=== PATIENT | male | born 1960 | race Caucasian/White ===

== ENCOUNTER 2019-09-16 12:02 | Emergency (ER) | payer OTHER, SELFPAY ==
[2019-09-16 12:05] VITALS: BP 183/100; PULSE 122; RESP 20; TEMP 36.9; O2SAT 99
--- NOTE | 2019-09-16 12:11 | DI.RAD.S_ITS ---
PROCEDURE: XR CHEST 1V INDICATIONS: chest pain TECHNIQUE: One view of the chest was acquired. COMPARISON: [facility], , CHEST 2 VIEW, 10/25/2008, 15:40. FINDINGS: Surgical changes and devices: None. Lungs and pleura: An incomplete inspiratory result is noted, causing a crowded appearance to the lung markings. No focal infiltrates are seen. No pneumothorax or significant pleural effusions are seen. Mediastinum: Mediastinal contours appear normal. Heart size is normal. Bones and chest wall: No suspicious bony lesions. Age-appropriate bony degenerative changes are seen. Overlying soft tissues appear unremarkable. IMPRESSION: Portable chest within normal limits for age. Dictated by: Miguel Ibarra M.D. on 09/16/2019 at 11:32 Approved by: Miguel Ibarra M.D. on 09/16/2019 at 11:34
[2019-09-16 12:29] LABS: Add Manual Diff / Slide Review NO; Basophils Absolute Auto 0 /uL (0-100); Basophils Percent Auto 0.4 % (0-2); Eosinophils Absolute Auto 300 /uL (0-450); Eosinophils Percent Auto 4.8 % (2-4); Hematocrit 45.6 % (41-53); Lymphocytes Absolute Auto 2900 /uL (1100-4500); Lymphocytes Percent Auto 40.6 % (25-40); Mean Corpuscular HGB Conc 35.2 % (30-36); Mean Corpuscular Hemoglobin 31.7 PG (26-34); Mean Corpuscular Volume 90.1 fL (80-100); Monocytes Absolute Auto 600 /uL (0-900); Monocytes Percent Auto 8.5 % (3-14); Neutrophils Absolute Auto 3300 /uL (1500-7000); Neutrophils Percent Auto 45.7 % (50-75); Platelet Count 230 X10^3/uL (150-400); Red Blood Cell Count 5.06 X10^6/uL (4.5-5.9); Red Cell Distribution Width 14.3 % (11.6-14.8); White Blood Cell Count 7.2 X10^3/uL (4.5-11.0)
--- NOTE | 2019-09-16 12:29 | ED.CHESTPAIN ---
HPI - Chest Pain <Camille FabianKYE - Last Filed: 09/16/19 19:07> General Chief Complaint: Chest Pain Stated Complaint: chest pressure/tingling limbs/lips numb/lightheadx Time Seen by Provider: 09/16/19 12:17 Source: patient Mode of arrival: Ambulatory Limitations: no limitations History of Present Illness HPI narrative: 59yo male states current smoker (half a pack a day), drinks approximately 3-4 drinks a day, and has a history of anxiety in the past, presents emergency department complaining of intermittent chest pain for the past 3 weeks. He states he has a ?chest discomfort ?he has felt (denies pressure, tightness). States he has noticed it worse in the morning. He also has intermittent sharp stabbing pain that ?radiates threw his lungs. Denies any alleviating factors. He denies any exacerbating factors such as activity or cold air. He states he felt the discomfort before doing yd work, was able to do the yd work he had planned without any difficulty or shortness of breath. Patient states he occasionally feels palpitations, he causes ?AFib ?but has never been diagnosed with this arrhythmia. However,over the past 3 weeks he has felt random episodes of dizziness. He denies any aggravating or alleviating factors to this dizziness. He states he feels occasionally dizzy with numbness and tingling in his hands, legs, and mouth. He reports associated nausea. He states he has had this in the past and was diagnosed with a panic attack. 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 He believes he has been exposed to COVID-19. He denies any fevers, nasal congestion, sore throat, cough, shortness of breath, vomiting, diarrhea, or abdominal pain. Patient denies any chest discomfort at this time, he states he did take a full aspirin today. He denies taking any medications, denies any history of heart issues, hypertension, or high cholesterol. Denies surgeries other than Achilles tendon repair. No history of PEs, no recent long trips. Related Data Home Medications Medication Instructions Recorded Confirmed aspirin 325 mg PO QDAY #0 tab 02/06/13 09/16/19 Previous Rx's Medication Instructions Recorded hydroxyzine HCl 25 mg PO BID PRN #20 tab 09/16/19 Allergies Allergy/AdvReac Type Severity Reaction Status Date / Time No Known Drug Allergies Allergy Verified 09/16/19 12:23 Review of Systems <YKE Bell - Last Filed: 09/16/19 19:07> Review of Systems Narrative: REVIEW OF SYSTEMS: GENERAL: Denies fever or chills. HENT: No head trauma, hearing loss or sore throat. EYES: Denies vision changes. CARDIOVASCULAR: Reports chest discomfort, see HPI. RESPIRATORY: Denies cough. GASTROINTESTINAL: Novomiting, diarrhea, or constipation. MUSCULOSKELETAL: No pain, weakness, or deformities. INTEGUMENTARY: No rash, lesions, or pruritus. NEURO: Reports numbness and tingling in his hands, feet, and around his mouth. PSYCH: No behavior or mood changes. Patient History <KYE Bell - Last Filed: 09/16/19 19:07> Medical History Smoker (Acute) Family History Father Age: 82 Skin cancer Mother Age: 81 Hypertension Hyperlipidemia Social History Smoking Status: Current some day smoker second hand exposure: No alcohol intake: current (1-2 Beers 5x a week) substance use type: does not use Smoking Status: Current some day smoker alcohol intake frequency: 3 or more drinks per day Substance Use Type: does not use Exam <KYE Bell - Last Filed: 09/16/19 19:07> Initial Vital Signs Initial Vital Signs: Vital Signs Temperature 98.5 F 09/16/19 12:05 Pulse Rate 122 H 09/16/19 12:05 Respiratory Rate 20 09/16/19 12:05 Blood Pressure 183/100 H 09/16/19 12:05 Pulse Oximetry 99 09/16/19 12:05 PHYSICAL EXAMINATION: GENERAL: Well groomed, alert, and cooperative. Answers questions promptly and appropriately. Vital signs noted. HENT: Normocephalic, atraumatic. Ear canals patent. Oral mucosa is pink and moist. EYES: Conjunctiva pink, sclera white, no periorbital swelling. CHEST: Normal to inspection and without deformities. CARDIOVASCULAR: S1 and S2 sounds normal. Tachycardia, regular rhythm, no murmurs, clicks, or bruits. No pedal edema. RESPIRATORY: Normal respiratory rate, trachea midline, airway patent. No stridor, nasal flaring or accessory muscle use. Lungs are clear in all mendez without wheeze, rhonchi, or crackles. MUSCULOSKELETAL: Normal gait and coordination. Equal tone and mass bilaterally. EXTREMITIES: CMS intact. Moves all extremities. SKIN: Warm, dry, soft, appropriate color for ethnicity. No lesions, rashes, or wounds. NEURO: Alert and Oriented X 3. Good coordination. No ataxia, or sensory deficits, or cognitive issues. PSYCH: Appropriate affect and mood. <Fam iFgueredo MD - Last Filed: 09/17/19 08:16> Initial Vital Signs Initial Vital Signs: Vital Signs Temperature 98.5 F 09/16/19 12:05 Pulse Rate 122 H 09/16/19 12:05 Respiratory Rate 20 09/16/19 12:05 Blood Pressure 183/100 H 09/16/19 12:05 Pulse Oximetry 99 09/16/19 12:05 Scores <KYE Bell - Last Filed: 09/16/19 19:07> HEART Score Heart Score history: Slightly Suspicious Heart Score EKG: Normal Heart Score Age: 45-64 years old Heart Score risk factors: No known risk factors Heart Score troponin: < or = to normal limit Heart Score Total: 1 PERC Score Age greater than or equal to 50 years: Yes Heart rate greater than or equal to 100 bpm: Yes Room Air O2 Sat less than 95%: No Unilateral leg swelling: No Recent trauma or surgery: No Hemoptysis: No Prior PE or DVT: No Hormone Use: No Total PERC Score: 2 Wells' Criteria for PE Clinical signs and symptoms of DVT: No PE is #1 Dx or equally likely: No Heart rate > 100: Yes Immobilization at least 3 days or surg in previous 4 weeks: No History of PE or DVT: No Hemoptysis: No Malignancy w/Treatment within 6 months or palliative: No Wells' PE Score total: 1.5 Course <KYE Bell - Last Filed: 09/16/19 19:07> Course Course Narrative: Patient initially presented with tachycardia, after initial evaluation and half a L fluid, patient's heart rate return to 90 beats per minute. 1350: Patient re-evaluated, states he still has a small amount of numbness and tingling in his hands. Continues to deny chest pain or discomfort. Discussed trial of Ativan to r/o anxiety. 1420: Patient reports feeling much better, he reports the numbness and tingling around his mouth and hands have resolved. He still has a small amount of tingling in his feet. Patient past orthostatic vital signs without concerns or symptoms. Patient reports he feels comfortable going home. He was given information to have her primary care provider. Orders Ordered: Discontinued Medications Sodium Chloride (Normal Saline 0.9%) 1,000 mls @ 1,000 mls/hr IV BOLUS ONE Stop: 09/16/19 13:27 Last Infusion: 09/16/19 14:00 Dose: 0 mls/hr Documented by: Admin: 09/16/19 12:38 Dose: 1,000 mls/hr Documented by: GINNA Lorazepam (Ativan) 0.5 mg IV NOW ONE Stop: 09/16/19 13:50 Last Admin: 09/16/19 13:57 Dose: 0.5 mg Documented by: GINNA Ondansetron HCl (Zofran) 4 mg IV NOW ONE Stop: 09/16/19 12:29 Last Admin: 09/16/19 12:38 Dose: 4 mg Documented by: GINNA Consultations Consultation #1: Patient staffed with discussed, test, results, and plan of care. Discussed discharge instructions. Vital Signs Vital signs: Vital Signs - 8 hr 09/16/19 12:05 09/16/19 12:30 09/16/19 13:04 Temperature 98.5 F Pulse Rate 122 H 90 79 Pulse Rate [Orthostatic Lying] Pulse Rate [Orthostatic Sitting] Pulse Rate [Orthostatic Standing] Respiratory Rate 20 16 15 Blood Pressure 183/100 H Blood Pressure [Left Arm] 166/78 H 148/78 H Blood Pressure [Orthostatic Lying] Blood Pressure [Orthostatic Sitting] Blood Pressure [Orthostatic Standing] Pulse Oximetry 99 99 99 09/16/19 13:46 09/16/19 14:50 09/16/19 15:35 Temperature Pulse Rate 80 76 Pulse Rate [Orthostatic Lying] 79 Pulse Rate [Orthostatic Sitting] 78 Pulse Rate [Orthostatic Standing] 76 Respiratory Rate 14 16 Blood Pressure 135/75 Blood Pressure [Left Arm] 142/79 H Blood Pressure [Orthostatic Lying] 135/71 Blood Pressure [Orthostatic Sitting] 158/91 H Blood Pressure [Orthostatic Standing] 134/78 Pulse Oximetry 99 98 <Fam Figueredo MD - Last Filed: 09/17/19 08:16> Orders Ordered: Discontinued Medications Sodium Chloride (Normal Saline 0.9%) 1,000 mls @ 1,000 mls/hr IV BOLUS ONE Stop: 09/16/19 13:27 Last Infusion: 09/16/19 14:00 Dose: 0 mls/hr Documented by: Admin: 09/16/19 12:38 Dose: 1,000 mls/hr Documented by: GINNA Lorazepam (Ativan) 0.5 mg IV NOW ONE Stop: 09/16/19 13:50 Last Admin: 09/16/19 13:57 Dose: 0.5 mg Documented by: GINNA Ondansetron HCl (Zofran) 4 mg IV NOW ONE Stop: 09/16/19 12:29 Last Admin: 09/16/19 12:38 Dose: 4 mg Documented by: GINNA Vital Signs Vital signs: Vital Signs - 8 hr 09/16/19 12:05 09/16/19 12:30 09/16/19 13:04 Temperature 98.5 F Pulse Rate 122 H 90 79 Pulse Rate [Orthostatic Lying] Pulse Rate [Orthostatic Sitting] Pulse Rate [Orthostatic Standing] Respiratory Rate 20 16 15 Blood Pressure 183/100 H Blood Pressure [Left Arm] 166/78 H 148/78 H Blood Pressure [Orthostatic Lying] Blood Pressure [Orthostatic Sitting] Blood Pressure [Orthostatic Standing] Pulse Oximetry 99 99 99 09/16/19 13:46 09/16/19 14:50 09/16/19 15:35 Temperature Pulse Rate 80 76 Pulse Rate [Orthostatic Lying] 79 Pulse Rate [Orthostatic Sitting] 78 Pulse Rate [Orthostatic Standing] 76 Respiratory Rate 14 16 Blood Pressure 135/75 Blood Pressure [Left Arm] 142/79 H Blood Pressure [Orthostatic Lying] 135/71 Blood Pressure [Orthostatic Sitting] 158/91 H Blood Pressure [Orthostatic Standing] 134/78 Pulse Oximetry 99 98 MDM - Chest Pain <KYE Bell - Last Filed: 09/16/19 19:07> Medical Records Data Attestation: I reviewed the patient's medical records. Lab Data Attestation: I reviewed the patient's lab results. Result diagrams: 09/16/19 12:18 09/16/19 12:18 Labs: Lab Results 09/16/19 09/16/19 09/16/19 Range/Units 12:18 12:18 12:18 WBC 7.2 (4.5-11.0) X10^3/uL RBC 5.06 (4.5-5.9) X10^6/uL Hgb 16.0 (13.5-17.5) g/dL Hct 45.6 (41-53) % MCV 90.1 (80-100) fL MCH 31.7 (26-34) PG MCHC 35.2 (30-36) % RDW 14.3 (11.6-14.8) % Plt Count 230 (150-400) X10^3/uL Neut % (Auto) 45.7 L (50-75) % Lymph % (Auto) 40.6 H (25-40) % Canadian % (Auto) 8.5 (3-14) % Eos % (Auto) 4.8 H (2-4) % Baso % (Auto) 0.4 (0-2) % Neut # (Auto) 3300 (2770-5323) /uL Lymph # (Auto) 2900 (4346-4631) /uL Canadian # (Auto) 600 (0-900) /uL Eos # (Auto) 300 (0-450) /uL Baso # (Auto) 0 (0-100) /uL ESR (0-15) MM/HR PT 10.5 (10.1-12.7) SECONDS INR 0.9 (0.9-1.3) APTT 30 (26.4-36.2) SECONDS D-Dimer (<230) ng/mL Sodium 138 (137-145) mmol/L Potassium 3.7 (3.4-5.1) mmol/L Chloride 105 (98-107) mmol/L Carbon Dioxide 23 (22-32) mmol/L BUN 15 (9-20) mg/dL Creatinine 0.74 (0.66-1.25) mg/dL Estimated GFR > 60.0 (>60) mL/min BUN/Creatinine Ratio 20.3 (6-22) Glucose 125 H (70-100) mg/dL Calcium 9.7 (8.4-10.2) mg/dL Magnesium 1.8 (1.6-2.3) mg/dL Total Bilirubin 0.6 (0.2-1.3) mg/dL AST 25 (17-59) IU/L ALT 21 (<50) IU/L Alkaline Phosphatase 88 (38-126) U/L Total Creatine Kinase 63 (55-170) U/L CK-MB (CK-2) TNP CK-MB (CK-2) Rel Index TNP Troponin I < 0.012 (0.01-0.034) ng/mL C-Reactive Protein (<1.0) mg/dL NT-Pro-B Natriuret Pep 22 (<125) pg/mL Total Protein 7.5 (6.3-8.2) g/dL Albumin 4.4 (3.5-5.0) g/dL Globulin 3.1 (1.7-4.1) g/dL Albumin/Globulin Ratio 1.4 (1.0-2.8) Lipase 99 (23-300) U/L TSH (0.47-4.68) uIU/mL Urine RBC (0-5/HPF) Urine WBC (0-5/HPF) Urine Bacteria (None) Hyaline Casts (None) Granular Casts (None) Urine Mucus (Negative) Ur Culture Indicated? 09/16/19 09/16/19 09/16/19 Range/Units 12:18 12:18 12:18 WBC (4.5-11.0) X10^3/uL RBC (4.5-5.9) X10^6/uL Hgb (13.5-17.5) g/dL Hct (41-53) % MCV (80-100) fL MCH (26-34) PG MCHC (30-36) % RDW (11.6-14.8) % Plt Count (150-400) X10^3/uL Neut % (Auto) (50-75) % Lymph % (Auto) (25-40) % Canadian % (Auto) (3-14) % Eos % (Auto) (2-4) % Baso % (Auto) (0-2) % Neut # (Auto) (9989-8370) /uL Lymph # (Auto) (6772-2760) /uL Canadian # (Auto) (0-900) /uL Eos # (Auto) (0-450) /uL Baso # (Auto) (0-100) /uL ESR 2 (0-15) MM/HR PT (10.1-12.7) SECONDS INR (0.9-1.3) APTT (26.4-36.2) SECONDS D-Dimer (<230) ng/mL Sodium (137-145) mmol/L Potassium (3.4-5.1) mmol/L Chloride (98-107) mmol/L Carbon Dioxide (22-32) mmol/L BUN (9-20) mg/dL Creatinine (0.66-1.25) mg/dL Estimated GFR (>60) mL/min BUN/Creatinine Ratio (6-22) Glucose (70-100) mg/dL Calcium (8.4-10.2) mg/dL Magnesium (1.6-2.3) mg/dL Total Bilirubin (0.2-1.3) mg/dL AST (17-59) IU/L ALT (<50) IU/L Alkaline Phosphatase (38-126) U/L Total Creatine Kinase (55-170) U/L CK-MB (CK-2) CK-MB (CK-2) Rel Index Troponin I (0.01-0.034) ng/mL C-Reactive Protein < 0.5 (<1.0) mg/dL NT-Pro-B Natriuret Pep (<125) pg/mL Total Protein (6.3-8.2) g/dL Albumin (3.5-5.0) g/dL Globulin (1.7-4.1) g/dL Albumin/Globulin Ratio (1.0-2.8) Lipase (23-300) U/L TSH 1.71 (0.47-4.68) uIU/mL Urine RBC (0-5/HPF) Urine WBC (0-5/HPF) Urine Bacteria (None) Hyaline Casts (None) Granular Casts (None) Urine Mucus (Negative) Ur Culture Indicated? 09/16/19 09/16/19 Range/Units 12:18 12:46 WBC (4.5-11.0) X10^3/uL RBC (4.5-5.9) X10^6/uL Hgb (13.5-17.5) g/dL Hct (41-53) % MCV (80-100) fL MCH (26-34) PG MCHC (30-36) % RDW (11.6-14.8) % Plt Count (150-400) X10^3/uL Neut % (Auto) (50-75) % Lymph % (Auto) (25-40) % Canadian % (Auto) (3-14) % Eos % (Auto) (2-4) % Baso % (Auto) (0-2) % Neut # (Auto) (2552-9852) /uL Lymph # (Auto) (2984-8100) /uL Canadian # (Auto) (0-900) /uL Eos # (Auto) (0-450) /uL Baso # (Auto) (0-100) /uL ESR (0-15) MM/HR PT (10.1-12.7) SECONDS INR (0.9-1.3) APTT (26.4-36.2) SECONDS D-Dimer < 200 (<230) ng/mL Sodium (137-145) mmol/L Potassium (3.4-5.1) mmol/L Chloride (98-107) mmol/L Carbon Dioxide (22-32) mmol/L BUN (9-20) mg/dL Creatinine (0.66-1.25) mg/dL Estimated GFR (>60) mL/min BUN/Creatinine Ratio (6-22) Glucose (70-100) mg/dL Calcium (8.4-10.2) mg/dL Magnesium (1.6-2.3) mg/dL Total Bilirubin (0.2-1.3) mg/dL AST (17-59) IU/L ALT (<50) IU/L Alkaline Phosphatase (38-126) U/L Total Creatine Kinase (55-170) U/L CK-MB (CK-2) CK-MB (CK-2) Rel Index Troponin I (0.01-0.034) ng/mL C-Reactive Protein (<1.0) mg/dL NT-Pro-B Natriuret Pep (<125) pg/mL Total Protein (6.3-8.2) g/dL Albumin (3.5-5.0) g/dL Globulin (1.7-4.1) g/dL Albumin/Globulin Ratio (1.0-2.8) Lipase (23-300) U/L TSH (0.47-4.68) uIU/mL Urine RBC None seen (0-5/HPF) Urine WBC 1-5/hpf (0-5/HPF) Urine Bacteria Few (2-10) H (None) Hyaline Casts 5-10/lpf (None) Granular Casts 0-1/lpf (None) Urine Mucus 3+ H (Negative) Ur Culture Indicated? Specimen cultured Urine Dip Bedside Urine Glucose Negative Bedside Urine Bilirubin + 1 Bedside Urine Ketone ++ 40 Urine Specific Isle 1.025 Bedside Urine Occult Blood - Negative Bedside Urine pH 5.5 Bedside Urine Protein + 30 Bedside Urine Urobilinogen +/- 1mg Bedside Urine Nitrite - Negative Bedside Urine Leukocytes + 70 Esterase Imaging Data Chest x-ray: Radiologist's Impression: [address] [address] XRay Report Signed Patient: José Miguel Dunn CMR#: [id number] : 1Acct:[id number] Age/Sex: 59 / MDate of Service: 09/16/19 Loc: ED Accession Number: [id number] Procedure: XR chest 1V Ordering Provider: Fam Figueredo MD PROCEDURE: XR CHEST 1V INDICATIONS: chest pain TECHNIQUE: One view of the chest was acquired. COMPARISON: [facility], CHEST 2 VIEW, 10/25/2008, 15:40. FINDINGS: Surgical changes and devices: None. Lungs and pleura: An incomplete inspiratory result is noted, causing a crowded appearance to the lung markings. No focal infiltrates are seen. No pneumothorax or significant pleural effusions are seen. Mediastinum: Mediastinal contours appear normal. Heart size is normal. Bones and chest wall: No suspicious bony lesions. Age-appropriate bony degenerative changes are seen. Overlying soft tissues appear unremarkable. IMPRESSION: Portable chest within normal limits for age. Dictated by: Miguel Ibarra M.D. on 09/16/2019 at 11:32 Approved by: Miguel Ibarra M.D. on 09/16/2019 at 11:34 ECG Data Interpretation: 12:12: Sinus tachycardia, rate 120, IN interval 156, QTC 463. Nonspecific less than [address] depression noted to V4 and V5. No ST elevation or T-wave abnormality. No ectopy. EKG also viewed by Dr. Figueredo per protocol. 13:29 sinus rhythm, rate 76, IN interval 150, QTC 414. Possible less than [address] depression noted to V4. No ST elevation or T-wave abnormality. No ectopy. EKG also viewed by Dr. Figueredo per protocol. MDM Narrative Medical decision making narrative: 59-year-old male with healthy history, presents emergency department complaining of numbness and tingling to his mouth, hands, and feet with previous chest discomfort. Patient remained chest discomfort/pain free throughout his stay in the emergency department. I suspect patient's symptoms may be caused by anxiety/panic as patient states this is similar to his last panic attack years ago, symptoms improved after Ativan administration, patient reported bilateral hands, feet, and perioral tingling. Differential also includes vitamin-B deficiency, patient does report drinking alcohol but not excessively. Patient does report he has been on a KETO for the past few months which contains many animal proteins (making vitamin-B deficiency less likely.) Less likely WI or cardiovascular disease, and concerning EKG (some nonspecific ST depression noted in V4 without typical changes), pain-free at this time, not aggravated with activity, negative troponin, repeat EKG shows normal sinus rhythm, BNP within normal limits. HEART Score of 1. Less likely arrhythmia such as AFib, serial EKGs shows sinus rhythm, tachycardia decreased after fluids, TSH and magnesium within normal limits. Less likely PE as Well's criteria score of 1.5 and PERC score of two due to age in tachycardia, D-dimer was ordered which was negative. Patient's tachycardia resolved after half a L of fluid, no shortness of breath, no history of PEs. Patient was extensively counseled about establishing a primary care provider for follow-up. He was given hydroxyzine to help with anxiety episodes. He was given very strict return precautions for new or worsening symptoms. Patient agrees to plan of care verbalized understanding. Patient's symptoms significantly improved upon discharge. <Fam Figueredo MD - Last Filed: 09/17/19 08:16> Lab Data Labs: Lab Results 09/16/19 09/16/19 09/16/19 Range/Units 12:18 12:18 12:18 WBC 7.2 (4.5-11.0) X10^3/uL RBC 5.06 (4.5-5.9) X10^6/uL Hgb 16.0 (13.5-17.5) g/dL Hct 45.6 (41-53) % MCV 90.1 (80-100) fL MCH 31.7 (26-34) PG MCHC 35.2 (30-36) % RDW 14.3 (11.6-14.8) % Plt Count 230 (150-400) X10^3/uL Neut % (Auto) 45.7 L (50-75) % Lymph % (Auto) 40.6 H (25-40) % Canadian % (Auto) 8.5 (3-14) % Eos % (Auto) 4.8 H (2-4) % Baso % (Auto) 0.4 (0-2) % Neut # (Auto) 3300 (7564-6308) /uL Lymph # (Auto) 2900 (8054-8088) /uL Canadian # (Auto) 600 (0-900) /uL Eos # (Auto) 300 (0-450) /uL Baso # (Auto) 0 (0-100) /uL ESR (0-15) MM/HR PT 10.5 (10.1-12.7) SECONDS INR 0.9 (0.9-1.3) APTT 30 (26.4-36.2) SECONDS D-Dimer (<230) ng/mL Sodium 138 (137-145) mmol/L Potassium 3.7 (3.4-5.1) mmol/L Chloride 105 (98-107) mmol/L Carbon Dioxide 23 (22-32) mmol/L BUN 15 (9-20) mg/dL Creatinine 0.74 (0.66-1.25) mg/dL Estimated GFR > 60.0 (>60) mL/min BUN/Creatinine Ratio 20.3 (6-22) Glucose 125 H (70-100) mg/dL Calcium 9.7 (8.4-10.2) mg/dL Magnesium 1.8 (1.6-2.3) mg/dL Total Bilirubin 0.6 (0.2-1.3) mg/dL AST 25 (17-59) IU/L ALT 21 (<50) IU/L Alkaline Phosphatase 88 (38-126) U/L Total Creatine Kinase 63 (55-170) U/L CK-MB (CK-2) TNP CK-MB (CK-2) Rel Index TNP Troponin I < 0.012 (0.01-0.034) ng/mL C-Reactive Protein (<1.0) mg/dL NT-Pro-B Natriuret Pep 22 (<125) pg/mL Total Protein 7.5 (6.3-8.2) g/dL Albumin 4.4 (3.5-5.0) g/dL Globulin 3.1 (1.7-4.1) g/dL Albumin/Globulin Ratio 1.4 (1.0-2.8) Lipase 99 (23-300) U/L TSH (0.47-4.68) uIU/mL Urine RBC (0-5/HPF) Urine WBC (0-5/HPF) Urine Bacteria (None) Hyaline Casts (None) Granular Casts (None) Urine Mucus (Negative) Ur Culture Indicated? 09/16/19 09/16/19 09/16/19 Range/Units 12:18 12:18 12:18 WBC (4.5-11.0) X10^3/uL RBC (4.5-5.9) X10^6/uL Hgb (13.5-17.5) g/dL Hct (41-53) % MCV (80-100) fL MCH (26-34) PG MCHC (30-36) % RDW (11.6-14.8) % Plt Count (150-400) X10^3/uL Neut % (Auto) (50-75) % Lymph % (Auto) (25-40) % Canadian % (Auto) (3-14) % Eos % (Auto) (2-4) % Baso % (Auto) (0-2) % Neut # (Auto) (9446-5421) /uL Lymph # (Auto) (6588-3890) /uL Canadian # (Auto) (0-900) /uL Eos # (Auto) (0-450) /uL Baso # (Auto) (0-100) /uL ESR 2 (0-15) MM/HR PT (10.1-12.7) SECONDS INR (0.9-1.3) APTT (26.4-36.2) SECONDS D-Dimer (<230) ng/mL Sodium (137-145) mmol/L Potassium (3.4-5.1) mmol/L Chloride (98-107) mmol/L Carbon Dioxide (22-32) mmol/L BUN (9-20) mg/dL Creatinine (0.66-1.25) mg/dL Estimated GFR (>60) mL/min BUN/Creatinine Ratio (6-22) Glucose (70-100) mg/dL Calcium (8.4-10.2) mg/dL Magnesium (1.6-2.3) mg/dL Total Bilirubin (0.2-1.3) mg/dL AST (17-59) IU/L ALT (<50) IU/L Alkaline Phosphatase (38-126) U/L Total Creatine Kinase (55-170) U/L CK-MB (CK-2) CK-MB (CK-2) Rel Index Troponin I (0.01-0.034) ng/mL C-Reactive Protein < 0.5 (<1.0) mg/dL NT-Pro-B Natriuret Pep (<125) pg/mL Total Protein (6.3-8.2) g/dL Albumin (3.5-5.0) g/dL Globulin (1.7-4.1) g/dL Albumin/Globulin Ratio (1.0-2.8) Lipase (23-300) U/L TSH 1.71 (0.47-4.68) uIU/mL Urine RBC (0-5/HPF) Urine WBC (0-5/HPF) Urine Bacteria (None) Hyaline Casts (None) Granular Casts (None) Urine Mucus (Negative) Ur Culture Indicated? 09/16/19 09/16/19 Range/Units 12:18 12:46 WBC (4.5-11.0) X10^3/uL RBC (4.5-5.9) X10^6/uL Hgb (13.5-17.5) g/dL Hct (41-53) % MCV (80-100) fL MCH (26-34) PG MCHC (30-36) % RDW (11.6-14.8) % Plt Count (150-400) X10^3/uL Neut % (Auto) (50-75) % Lymph % (Auto) (25-40) % Canadian % (Auto) (3-14) % Eos % (Auto) (2-4) % Baso % (Auto) (0-2) % Neut # (Auto) (4450-2200) /uL Lymph # (Auto) (6598-9337) /uL Canadian # (Auto) (0-900) /uL Eos # (Auto) (0-450) /uL Baso # (Auto) (0-100) /uL ESR (0-15) MM/HR PT (10.1-12.7) SECONDS INR (0.9-1.3) APTT (26.4-36.2) SECONDS D-Dimer < 200 (<230) ng/mL Sodium (137-145) mmol/L Potassium (3.4-5.1) mmol/L Chloride (98-107) mmol/L Carbon Dioxide (22-32) mmol/L BUN (9-20) mg/dL Creatinine (0.66-1.25) mg/dL Estimated GFR (>60) mL/min BUN/Creatinine Ratio (6-22) Glucose (70-100) mg/dL Calcium (8.4-10.2) mg/dL Magnesium (1.6-2.3) mg/dL Total Bilirubin (0.2-1.3) mg/dL AST (17-59) IU/L ALT (<50) IU/L Alkaline Phosphatase (38-126) U/L Total Creatine Kinase (55-170) U/L CK-MB (CK-2) CK-MB (CK-2) Rel Index Troponin I (0.01-0.034) ng/mL C-Reactive Protein (<1.0) mg/dL NT-Pro-B Natriuret Pep (<125) pg/mL Total Protein (6.3-8.2) g/dL Albumin (3.5-5.0) g/dL Globulin (1.7-4.1) g/dL Albumin/Globulin Ratio (1.0-2.8) Lipase (23-300) U/L TSH (0.47-4.68) uIU/mL Urine RBC None seen (0-5/HPF) Urine WBC 1-5/hpf (0-5/HPF) Urine Bacteria Few (2-10) H (None) Hyaline Casts 5-10/lpf (None) Granular Casts 0-1/lpf (None) Urine Mucus 3+ H (Negative) Ur Culture Indicated? Specimen cultured Urine Dip Bedside Urine Glucose Negative Bedside Urine Bilirubin + 1 Bedside Urine Ketone ++ 40 Urine Specific [place] 1.025 Bedside Urine Occult Blood - Negative Bedside Urine pH 5.5 Bedside Urine Protein + 30 Bedside Urine Urobilinogen +/- 1mg Bedside Urine Nitrite - Negative Bedside Urine Leukocytes + 70 Esterase Discharge Plan Departure Patient Disposition: Home Clinical Impression: Atypical chest pain Discharge Date/Time: 09/16/19 15:36 Instructions: DI for Atypical Chest Pain, DI for Anxiety -- Adult Activity Restrictions/Additional Instructions: Thank you for entrusting me with your care today. As discussed, your chest x-ray, EKG, and laboratory work are non concerning for cardiac issues, pulmonary embolism, or infections like pneumonia. I am unsure the exact cause of the numbness and tingling that you are feeling, It may be related to anxiety. I have given you a prescription called hydroxyzine. This medication can help decrease anxiety, take this only when needed. It can make you drowsy so do not drive while taking this medication. There was a small amount of bacteria in your urine, this can be normal. However to ensure there is no infection we have sent your urine for a culture. The results will return in 2 days, we will call you only if there is a positive infection and prescribed you antibiotics if needed. However, this is unlikely. Please return emergency department for any new or worsening symptoms such as change in chest pain, high fevers, uncontrollable vomiting, shortness of breath, or any other concerns. Please follow-up and establish a primary care provider in the next week for further evaluation and treatment. Prescriptions: New hydroxyzine HCl 25 mg tablet 25 mg PO BID PRN (Reason: Anxiety ) Qty: 20 RF: 0 No Action aspirin 325 MG tablet 325 mg PO QDAY Qty: 0 RF: 0
[2019-09-16 12:30] VITALS: BP 166/78; PULSE 90; RESP 16; O2SAT 99
[2019-09-16 12:32] LABS: INR 0.9 (0.9-1.3); Prothrombin Time 10.5 SECONDS (10.1-12.7)
[2019-09-16 12:35] LABS: PTT Partial Thromboplastin Tim 30 SECONDS (26.4-36.2)
[2019-09-16 12:36] LABS: Alanine Aminotransferase 21 IU/L (<50); Albumin 4.4 g/dL (3.5-5.0); Albumin Globulin Ratio 1.4 (1.0-2.8); Alkaline Phosphatase 88 U/L (38-126); Aspartate Aminotransferase 25 IU/L (17-59); BUN Creatinine Ratio 20.3 (6-22); Bilirubin Total 0.6 mg/dL (0.2-1.3); Blood Urea Nitrogen 15 mg/dL (9-20); Calcium 9.7 mg/dL (8.4-10.2); Carbon Dioxide 23 mmol/L (22-32); Chloride 105 mmol/L (98-107); Creatine Kinase 63 U/L (55-170); Estimated Glomerular Filt Rate > 60.0 mL/min (>60); Globulin 3.1 g/dL (1.7-4.1); Glucose 125 mg/dL (70-100); HEMOLYSIS < 15 (0-50); Lipase 99 U/L (23-300); Magnesium 1.8 mg/dL (1.6-2.3); Potassium 3.7 mmol/L (3.4-5.1); Sodium 138 mmol/L (137-145); Total Protein 7.5 g/dL (6.3-8.2)
[2019-09-16] MEDS: SODIUM CHLORIDE 0.9% 1,000 ML 1000 ML IV (12:38)
[2019-09-16] MEDS: ONDANSETRON 4 MG/2 ML INJ IV (12:38)
[2019-09-16 12:48] LABS: NT-proBNP (BNP-Adult 18+) 22 pg/mL (<125); Troponin I < 0.012 ng/mL (0.01-0.034)
[2019-09-16 12:50] LABS: C-Reactive Protein Quant < 0.5 mg/dL (<1.0)
[2019-09-16 12:55] LABS: Erythrocyte Sedimentation Rate 2 MM/HR (0-15)
[2019-09-16 12:56] LABS: RBC Urine None Seen (0-5/HPF)
[2019-09-16 13:04] VITALS: BP 148/78; PULSE 79; RESP 15; O2SAT 99
[2019-09-16 13:17] LABS: D Dimer < 200 ng/mL (<230)
[2019-09-16 13:18] LABS: TSH w/ Reflex to FT4 1.71 uIU/mL (0.47-4.68)
[2019-09-16 13:18] LABS: Bacteria Urine Few (2-10); Culture Indicated Urine Specimen Cultured; Granular Casts Urine 0-1/LPF; Hyaline Casts Urine 5-10/LPF; Mucus Urine 3+ (Negative); WBC Urine 1-5/HPF (0-5/HPF)
[2019-09-16 13:46] VITALS: BP 142/79; PULSE 80; RESP 14; O2SAT 99
[2019-09-16] MEDS: LORazepam 2 MG/ML INJ 0.5 MG IV (13:57)
[2019-09-16 14:50] VITALS: BP 134/78; BP 135/71; BP 158/91; PULSE 76; PULSE 78; PULSE 79
[2019-09-16 15:35] VITALS: BP 135/75; PULSE 76; RESP 16; O2SAT 98
== END 2019-09-16 15:36 | disposition home or self-care (01) ==
PROVIDERS: Emergency Medicine; Emergency Provider Nurse Practitioner
DX: R07.89 Other chest pain (principal); F41.9 Anxiety disorder, unspecified; R00.0 Tachycardia, unspecified
CPT/HCPCS: 36415; 71045; 80053; 81003; 81015; 82550; 83690; 83735; 83880; 84443; 84484; 85025; 85379; 85610; 85651; 85730; 86140; 87086; 93005; 93010; 96361; 96374; 96375; 99285; J2060; J2405

== ENCOUNTER → 2019-11-06 08:13 | Outpatient (CLI) | payer OTHER, SELFPAY ==
[2019-11-06 09:19] LABS: Cholesterol 221 mg/dL (140-199); HDL Cholesterol 65 mg/dL (40-60); LDL Cholesterol Calculated 142 mg/dL (<100); Triglycerides 69 mg/dL (35-150)
[2019-11-06 09:32] LABS: Prostate Specific Antigen Scrn 0.218 ng/mL (0.1-4.0)
== END ==
PROVIDERS: PCP Internal Medicine; Referring Provider Internal Medicine; Visit Provider Internal Medicine
DX: Z13.220 Encounter for screening for lipoid disorders (principal); Z13.6 Encounter for screening for cardiovascular disorders; Z12.5 Encounter for screening for malignant neoplasm of prostate
CPT/HCPCS: 36415; 80061; G0103

== ENCOUNTER → 2022-10-23 09:06 | Outpatient (CLI) | payer OTHER, SELFPAY ==
[2022-10-23 10:01] LABS: Alanine Aminotransferase 33 IU/L (<50); Albumin 3.9 g/dL (3.5-5.0); Albumin Globulin Ratio 1.6 (1.0-2.8); Alkaline Phosphatase 91 U/L (38-126); Aspartate Aminotransferase 26 IU/L (17-59); BUN Creatinine Ratio 8.8 (6-22); Bilirubin Total 0.5 mg/dL (0.2-1.3); Blood Urea Nitrogen 7 mg/dL (9-20); Calcium 9.4 mg/dL (8.4-10.2); Carbon Dioxide 28 mmol/L (22-32); Chloride 106 mmol/L (98-107); Cholesterol 262 mg/dL (140-199); Estimated Glomerular Filt Rate > 60 mL/min (>60); Globulin 2.5 g/dL (1.7-4.1); Glucose 104 mg/dL (80-110); HDL Cholesterol 74 mg/dL (40-60); HEMOLYSIS < 15 (0-50); LDL Cholesterol Calculated 163 mg/dL (<100); Sodium 139 mmol/L (137-145); Total Protein 6.4 g/dL (6.3-8.2); Triglycerides 123 mg/dL (35-150); Uric Acid 7.5 mg/dL (3.5-8.5)
[2022-10-23 10:27] LABS: Prostate Specific Antigen Scrn 0.171 ng/mL (0.1-4.0)
== END ==
PROVIDERS: PCP Internal Medicine; Referring Provider Internal Medicine; Visit Provider Internal Medicine
DX: M1A.9XX0 Chronic gout, unspecified, without tophus (tophi) (principal); Z13.6 Encounter for screening for cardiovascular disorders; Z13.1 Encounter for screening for diabetes mellitus; Z13.220 Encounter for screening for lipoid disorders; Z79.899 Other long term (current) drug therapy; Z12.5 Encounter for screening for malignant neoplasm of prostate
CPT/HCPCS: 36415; 80053; 80061; 84550; G0103